=== PATIENT | female | born 1990 | race African-American/Black ===

== ENCOUNTER 2019-07-02 17:38 | Emergency (ER) | payer OTHER ==
[2019-07-02 17:42] VITALS: BMI 39.4
[2019-07-02 18:21] VITALS: BP 117/72; PULSE 70; TEMP 98.2
[2019-07-02 20:17] LABS: BASO % 0.3 % (0-2.0); EOS % 1.4 % (0-4.5); HEMATOCRIT 38.1 % (32.4-45.2); HEMOGLOBIN 12.5 GM/dl (10.7-15.3); LYMPH % 28.4 % (8-40); MCHC 32.8 g/dl (32.0-36.0); MEAN CELL VOLUME 79.4 fl (80-96); MEAN PLT VOLUME 7.5 fl (7.5-11.1); NEUT % 62.9 % (42.8-82.8); PLATELET COUNT 430 K/MM3 (134-434); RDW 13.5 % (11.6-15.6); WHITE BLOOD COUNT 7.9 K/mm3 (4.0-10.8)
[2019-07-02 20:19] LABS: ALBUMIN 3.5 g/dl (3.4-5.0); BILIRUBIN,TOTAL 0.5 mg/dl (0.2-1); CALCIUM 8.8 mg/dl (8.5-10); CREATININE 0.9 mg/dl (0.55-1.3); POTASSIUM 3.4 mmol/L (3.5-5.1); TOT PROT 6.4 g/dl (6.4-8.2)
--- NOTE | 2019-07-02 20:27 | PDOC ---
Documentation entered by Park Eugene SCRIBE, acting as scribe for Radha Andrew MD. Radha Andrew MD: This documentation has been prepared by the scribeJabier Lincy, SCRIBE, under my direction and personally reviewed by me in its entirety. I confirm that the documentation accurately reflects all work, treatment, procedures, and medical decision making performed by me. History of Present Illness - General Chief Complaint: Pain Stated Complaint: CASAS STOOL Time Seen by Provider: 07/02/19 17:44 History Source: Patient Exam Limitations: No Limitations - History of Present Illness Initial Comments: 07/02/19 20:05 The patient is a 29-year-old female with no reported past medical history who presents to the emergency department with tabares colored stool. The patient reports last Monday (06/23) she got the stomach bug from her co-workers who also had the bug. The patient reports her co-worker's symptoms lasted for 2-3 days, however, her symptoms lasted till Monday (06/28). The patient presents today, complaining of tabares colored stool. The patient reports she regularly does an enema at home. Denies fever or chills. Allergies: NKDA Surgical history: . LMP: 3 weeks ago Past History - Past Medical History Allergies/Adverse Reactions: Allergies Allergy/AdvReac Type Severity Reaction Status Date / Time No Known Allergies Allergy Verified 07/02/19 17:39 Home Medications: Ambulatory Orders NK [No Known Home Medication] 07/02/19 COPD: No CHF: No DVT: No - Psycho Social/Smoking Cessation Hx Smoking History: Never smoked Hx Alcohol Use: Yes (OCASIONAL) Drug/Substance Use Hx: No Review of Systems - Review of Systems Able to Perform ROS?: Yes Comments:: 07/02/19 20:05 GENERAL/CONSTITUTIONAL: No fever or chills. No weakness. HEAD, EYES, EARS, NOSE AND THROAT: No change in vision. No ear pain or discharge. No sore throat. CARDIOVASCULAR: No chest pain or shortness of breath. RESPIRATORY: No cough, wheezing, or hemoptysis. GASTROINTESTINAL: +tabares colored stool. No nausea, vomiting, diarrhea or constipation. GENITOURINARY: No dysuria, frequency, or change in urination. MUSCULOSKELETAL: No joint or muscle swelling or pain. No neck or back pain. SKIN: No rash NEUROLOGIC: No headache, vertigo, loss of consciousness, or change in strength/ sensation. ENDOCRINE: No increased thirst. No abnormal weight change. HEMATOLOGIC/LYMPHATIC: No anemia, easy bleeding, or history of blood clots. ALLERGIC/IMMUNOLOGIC: No hives or skin allergy. *Physical Exam - Vital Signs Last Vital Signs Temp Pulse Resp BP Pulse Ox 98.2 F 70 17 117/72 100 07/02/19 17:38 07/02/19 17:38 07/02/19 17:38 07/02/19 17:38 07/02/19 17:38 - Physical Exam Comments: 07/02/19 20:07 GENERAL: Awake, alert, and fully oriented, in no acute distress HEAD: No signs of trauma EYES: PERRLA, EOMI, sclera anicteric, conjunctiva clear ENT: Auricles normal inspection, hearing grossly normal, nares patent, oropharynx clear without exudates. Moist mucosa NECK: Normal ROM, supple, no lymphadenopathy, JVD, or masses LUNGS: Breath sounds equal, clear to auscultation bilaterally. No wheezes, and no crackles HEART: Regular rate and rhythm, normal S1 and S2, no murmurs, rubs or gallops ABDOMEN: +minimal left upper quadrant tenderness. No rebound or guarding. Soft, no other tenderness. EXTREMITIES: Moving all extremities. no edema. NEUROLOGICAL: Cranial nerves II through XII grossly intact. Normal speech, normal gait SKIN: Warm, Dry, normal turgor, no rashes or lesions noted. ED Treatment Course - LABORATORY CBC & Chemistry Diagram: 07/02/19 20:00 07/02/19 20:00 - ADDITIONAL ORDERS Additional order review: Laboratory Results 07/02/19 07/02/19 07/02/19 20:00 20:00 20:00 Sodium 137 Potassium 3.4 L Chloride 108 H Carbon Dioxide 26 Anion Gap 3 L BUN 13.0 Creatinine 0.9 Est GFR (CKD-EPI)AfAm 99.44 Est GFR (CKD-EPI)NonAf 85.80 Random Glucose 81 Calcium 8.8 Total Bilirubin 0.5 AST 56 H ALT 110 H Alkaline Phosphatase 58 Total Protein 6.4 Albumin 3.5 Total Amylase 74 Urine Color Yellow Urine Appearance Clear Urine pH 6.5 Urine Protein Negative Urine Glucose (UA) Negative Urine Ketones Trace Urine Blood Trace-intact Urine Nitrite Negative Urine Bilirubin Negative Urine Urobilinogen 0.2 Ur Leukocyte Esterase Negative Urine HCG, Qual Negative 07/02/19 20:00 RBC 4.80 MCV 79.4 L MCHC 32.8 RDW 13.5 MPV 7.5 Neutrophils % 62.9 Lymphocytes % 28.4 Monocytes % 7.0 Eosinophils % 1.4 Basophils % 0.3 Medical Decision Making - Medical Decision Making 07/02/19 22:31 Pt with slightly elevated LFTs likely colón to her stomach virus. She reports acholic stools. She will be asked to follow with GI specialist. Discharge - Discharge Information Problems reviewed: Yes Clinical Impression/Diagnosis: Viral hepatitis, Acholic stool Condition: Improved Disposition: HOME - Admission No - Follow up/Referral Referrals: Blade Ramirez MD [Staff Physician] - Mingo Novoa [Non Staff, Medical] - - Patient Discharge Instructions Patient Printed Discharge Instructions: Viral Hepatitis (Alternative Therapy) - Post Discharge Activity
== END 2019-07-02 20:30 | disposition home or self-care (01) ==
LOC: FER 17:38
DX: K82.8 Other specified diseases of gallbladder (principal); B19.9 Unspecified viral hepatitis without hepatic coma
CPT/HCPCS: 36415; 80053; 81003; 81015; 82150; 83690; 84703; 85025; 99282-25

== ENCOUNTER 2022-07-06 15:13 | Emergency (ER) | payer OTHER ==
[2022-07-06 15:24] VITALS: BP 141/103; PULSE 116; RESP 18; TEMP 98.9; BMI 44.6
== END 2022-07-06 17:14 | disposition home or self-care (01) ==
LOC: FER 15:13
DX: O21.9 Vomiting of pregnancy, unspecified (principal); Z3A.01 Less than 8 weeks gestation of pregnancy
CPT/HCPCS: 0241U-QW; 84703; 99283-25

== ENCOUNTER 2022-08-06 21:35 | Emergency (ER) | payer OTHER ==
[2022-08-06 21:49] VITALS: RESP 18; TEMP 98.3; BMI 42.9
[2022-08-06 22:39] LABS: CALCIUM 9.1 mg/dl (8.5-10)
[2022-08-06 22:40] LABS: MCH 27.5 pg (25.7-33.7); MCHC 34.2 g/dl (32.0-36.0); MEAN CELL VOLUME 80.3 fl (80-96); MEAN PLT VOLUME 7.5 fl (7.5-11.1); PLATELET COUNT 343.3 10^3/uL (134-434); RBC 4.73 10^6/uL (3.60-5.2); RDW 15.5 % (11.6-15.6); WHITE BLOOD COUNT 10.5 10^3/uL (4.0-10.8)
[2022-08-06 22:44] LABS: ALBUMIN 3.5 g/dl (3.4-5.0); BILIRUBIN,TOTAL 0.6 mg/dl (0.2-1); CREATININE 0.5 mg/dl (0.55-1.3); TOT PROT 6.9 g/dl (6.4-8.2)
[2022-08-06 22:52] LABS: EPITHELIAL CELLS FEW /hpf
[2022-08-07 00:40] VITALS: BP 127/89; PULSE 63
== END 2022-08-07 00:43 | disposition home or self-care (01) ==
LOC: FER 21:35
DX: O20.8 Other hemorrhage in early pregnancy (principal); Z3A.01 Less than 8 weeks gestation of pregnancy
CPT/HCPCS: 36415; 76801-TC; 80053; 81003; 81015; 84702; 85027; 86850; 86900; 86901; 87086; 99284-25